=== PATIENT | male | born 1980 | race Caucasian/White ===

== ENCOUNTER 2023-04-10 12:36 | Outpatient (CLI) | payer OTHER, SELFPAY | END 2023-04-10 12:37 | disposition home or self-care (01) | PROVIDERS: PCP Family Medicine; Visit Provider Family Medicine | DX: Z00.00 Encounter for general adult medical examination without abnormal findings (principal); Z13.6 Encounter for screening for cardiovascular disorders; Z11.59 Encounter for screening for other viral diseases | CPT/HCPCS: 80053; 80061; 86803 ==

== ENCOUNTER 2024-06-06 07:16 | Day surgery (SDC) | payer OTHER, SELFPAY ==
[2024-06-06] VITALS (11 sets, daily range): BP systolic 118–136; BP diastolic 73–86; PULSE 45–60; RESP 16–20; TEMP 36.2–36.6; O2SAT 97–98; BMI 26.7
[2024-06-06] MEDS: SODIUM CHLORIDE 0.9 % (FLUSH) 10 ML SYRINGE IVF (07:50)
[2024-06-06] MEDS: LACTATED RINGERS 1000 ML 1,000 ML 100 ML IV ×2 (07:50→09:38)
--- NOTE | 2024-06-06 09:04 | W.PM.H&PU ---
History & Physical Update History & Physical Update H&P Reviewed and patient assessed: No changes noted
--- NOTE | 2024-06-06 09:04 | PM.GSPRC ---
Operative Note Date of procedure: 06/06/24 Pre-op diagnosis: Right inguinal hernia Post-op diagnosis: Same Type of Procedure: Laparoscopic right inguinal hernia repair with mesh Indications: The patient is a 43-year-old male who presented to clinic with a right groin bulge, First noted when he was doing physical activity. This becomes more symptomatic when he is working out. After discussion of options, he elected to proceed with repair. Procedure Description: After discussing the risks and benefits of the procedure, the patient signed informed consent.? The operative site was marked and the patient was brought to the operating room and placed on the operating table in supine position.? Care was taken to pad the patient's pressure points.?? The patient was then intubated by anesthesia.?? The operative site was then prepped and draped in the usual sterile fashion.? A time-out was then performed. A curvilinear incision was made below the umbilicus. Dissection was carried down to subcutaneous tissue until the anterior rectus fascia was encountered. This was incised off the midline on the right. The rectus muscle fibers were then retracted exposing the posterior fascia. A port with a dissecting balloon was then introduced into the pre-preperitoneal space. This was inflated under direct vision. The balloon was deflated, removed, and a 10 mm working port was placed. The space was insufflated and a 10 mm 30-degree scope was then advanced into the space. Two 5 mm ports were placed in the midline under direct vision. Dissection began on the right side. Bruno's ligament and the pubic bone were exposed medially. Following this, dissection was carried out laterally. An indirect defect was noted. The sac and a small cord lipoma were dissected free from the cord structures using a combination of sharp and blunt dissection. Once the sac was completely reduced, a piece of large Bard 3DMax mesh for the appropriate side was placed into the abdomen. This was positioned with the marker pointed medially. A Tacker was used to attach the mesh medially at Bruno's ligament. Once this was completed the sac was placed on top of the mesh and the preperitoneal space desufflated under direct vision to ensure the mesh laid flat. 10 mL of 0.5% Marcaine were instilled into the preperitoneal space through a port. The ports were removed. The fascia from the infraumbilical port was closed with 0 Vicryl. The skin incisions were closed with absorbable subcuticular suture. Sterile dressings were then applied. The scrotum was examined to ensure that both testicles were down. Instrument sponge and needle counts were correct at the end of the case. ? The patient was then woken and transported to the recovery area in stable condition. ? The patient tolerated the procedure well. Findings: Indirect right inguinal hernia. Anesthesia: GETA Surgeon: Lucy Ozuna MD Estimated blood loss (mL): 5 Condition: stable Disposition: PACU
[2024-06-06] MEDS: CEFAZOLIN 1 GM inj IVP (09:38)
[2024-06-06] MEDS: BUPIVACAINE 0.25% 30 ML INJECTION (10:01)
--- NOTE | 2024-06-06 10:36 | W.ANESCHARGE ---
Anesthesia Charges Start Date/Time Anesthesia Start Date: 06/06/24 Anesthesia Start Time: 09:06 Stop Date/Time Anesthesia Stop Date: 06/06/24 Anesthesia Stop Time: 10:26
--- NOTE | 2024-06-06 11:49 | W.ANESCHARGE ---
Anesthesia Charges Start Date/Time Anesthesia Start Date: 06/06/24 Anesthesia Start Time: 09:06 Stop Date/Time Anesthesia Stop Date: 06/06/24 Anesthesia Stop Time: 10:26
== END 2024-06-06 12:01 | disposition home or self-care (01) ==
PROVIDERS: PCP Family Medicine; Visit Provider Surgery
PROC: (CPT 49650; principal; 2024-06-06 09:00)
DX: K40.90 Unilateral inguinal hernia, without obstruction or gangrene, not specified as recurrent (principal)
CPT/HCPCS: 49650; 00860; C1781; J0330; J0665; J0690; J1100; J2250; J2405; J2704; J2710; J3010; J7120

== ENCOUNTER 2025-05-10 08:29 | Outpatient (CLI) | payer OTHER, SELFPAY | END 2025-05-10 08:30 | disposition home or self-care (01) | LOC: NFLDREF 05-11 15:59 | PROVIDERS: PCP Family Medicine; Referring Provider Family Medicine; Visit Provider Family Medicine | DX: Z00.00 Encounter for general adult medical examination without abnormal findings (principal); Z13.6 Encounter for screening for cardiovascular disorders | CPT/HCPCS: 80061 ==